=== PATIENT | female | born 1970 | race Caucasian/White ===

== ENCOUNTER 2020-10-15 06:38 | Day surgery (SDC) | payer BC ==
[~2020-10-15 06:38] MED LIST: Lactated Ringers 1,000 ML IV SCH; Sodium Chloride 0.9% 10 ML SDV IV PRN; Sodium Chloride 0.9% 10 ML Syringe FLUSH PRN; Sodium Chloride 0.9% 2.5 ML Syringe FLUSH PRN
[2020-10-15] MEDS ORDERED: Lidocaine 2% 5 ML SDV ONE (06:54)
[2020-10-15] MEDS ORDERED: Ondansetron 4 MG/2 ML SDV ONE (06:54)
[2020-10-15] MEDS ORDERED: Propofol 200 MG/20 ML SDV ONE (06:55)
[2020-10-15] MEDS ORDERED: Midazolam 1 MG/ML 2 ML SDV ONE (06:55)
[2020-10-15] MEDS ORDERED: fentaNYL 100 MCG/2 ML SDV ONE (06:56)
[2020-10-15] MEDS ORDERED: Dexamethasone 4 MG/ML 5 ML MDV ONE (06:58)
[2020-10-15] MEDS ORDERED: Scopolamine 1.5 MG Transdermal Patch TRDERM PRN (07:21)
--- NOTE | 2020-10-15 07:28 | PCM.PREANE ---
Preanesthetic Assessment - Anesthesia/Transfusion/Family Hx Anesthesia History: Prior Anesthesia Without Reaction Type of Anesthesia Reaction: Excessive Nausea/Vomiting Family History of Anesthesia Reaction: No Transfusion History: No Prior Transfusion(s) Intubation History: Unknown - Review of Systems General: No Symptoms Pulmonary: No Symptoms Cardiovascular: No Symptoms Gastrointestinal: No Symptoms Neurological: No Symptoms Other: Reports: None - Physical Assessment Vital Signs: Last Vital Signs Temp 36.3 C 10/15/20 06:45 Pulse 60 10/15/20 06:45 Resp 16 10/15/20 06:45 BP 140/85 10/15/20 06:45 Pulse Ox 96 10/15/20 06:45 Height: 5 ft 4 in Weight: 95.708 kg ASA Class: 2 Mental Status: Alert & Oriented x3 Airway Class: Mallampati = 2 Dentition: Reports: Normal Dentition, Implants (x1 upper front) Thyro-Mental Finger Breadths: 3 Mouth Opening Finger Breadths: 3 ROM/Head Extension: Full Lungs: Clear to Auscultation, Normal Respiratory Effort Cardiovascular: Regular Rate, Regular Rhythm - Lab Values: Laboratory Last Values WBC 7.76 K/uL (4.0-11.0) 10/15/20 07:04 RBC 4.08 M/uL (4.30-5.90) L 10/15/20 07:04 Hgb 11.5 g/dL (12.0-16.0) L 10/15/20 07:04 Hct 36.0 % (36.0-46.0) 10/15/20 07:04 MCV 88.2 fL (80.0-98.0) 10/15/20 07:04 MCH 28.2 pg (27.0-32.0) 10/15/20 07:04 MCHC 31.9 g/dL (31.0-37.0) 10/15/20 07:04 RDW Std Deviation 43.8 fl (28.0-62.0) 10/15/20 07:04 RDW Coeff of Harry 14 % (11.0-15.0) 10/15/20 07:04 Plt Count 302 K/uL (150-400) 10/15/20 07:04 MPV 11.00 fL (7.40-12.00) 10/15/20 07:04 Nucleated RBC % 0.0 /100WBC 10/15/20 07:04 Nucleated RBCs # 0 K/uL 10/15/20 07:04 - Allergies Allergies/Adverse Reactions: Allergies Allergy/AdvReac Type Severity Reaction Status Date / Time No Known Allergies Allergy Verified 10/11/20 09:39 - Blood Blood Available: No - Anesthesia Plan Pre-Op Medication Ordered: None - Acknowledgements Anesthesia Type Planned: General Anesthesia Pt an Appropriate Candidate for the Planned Anesthesia: Yes Alternatives and Risks of Anesthesia Discussed w Pt/Guardian: Yes Pt/Guardian Understands and Agrees with Anesthesia Plan: Yes PreAnesthesia Questionnaire HEENT History: Reports: Other (See Below) Other HEENT History: wears glasses, has dental implants Cardiovascular History: Reports: High Cholesterol, Hypertension Respiratory History: Reports: None Gastrointestinal History: Reports: None Genitourinary History: Reports: None 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: Musculoskeletal History: Reports: Arthritis, Other (See Below) Other Musculoskeletal History: hx congenital hip dysplasia Neurological History: Reports: Migraines Psychiatric History: Reports: Anxiety, Depression Endocrine/Metabolic History: Reports: Hypothyroidism, Obesity/BMI 30+ (BMI 36.2) Hematologic History: Reports: None Immunologic History: Reports: None Oncologic (Cancer) History: Reports: None Dermatologic History: Reports: None - Past Surgical History Head Surgeries/Procedures: Reports: None HEENT Surgical History: Reports: Oral Surgery, Tonsillectomy Cardiovascular Surgical History: Reports: None Respiratory Surgical History: Reports: None GI Surgical History: Reports: Cholecystectomy Female Surgical History: Reports: Section, D&C, Other (See Below) Other Female Surgeries/Procedures: hysteroscopy with fractional D&C with polypectomy on 09/15/19 Endocrine Surgical History: Reports: None Neurological Surgical History: Reports: None Musculoskeletal Surgical History: Reports: Hip Replacement, Shoulder Surgery Other Musculoskeletal Surgeries/Procedures:: rt shoulder surgery, left hip surgery for congenital hip dysplasia, achilles tendon repair Oncologic Surgical History: Reports: None Dermatological Surgical History: Reports: None - SUBSTANCE USE Tobacco Use Status *Q: Former Tobacco User Tobacco Use Within Last Twelve Months: No - HOME MEDS Home Medications: Home Meds FLUoxetine HCl [Fluoxetine HCl] 40 mg PO BEDTIME PRN 09/11/19 [History] Gabapentin [Neurontin] 300 mg PO DAILY 09/11/19 [History] Levothyroxine Sodium [Synthroid] 175 mcg PO DAILY 09/11/19 [History] Metoprolol Succinate 50 mg PO DAILY 09/11/19 [History] buPROPion HCL [Wellbutrin Xl] 300 mg PO DAILY 09/11/19 [History] Bifidobacterium Infantis [Align] 4 mg PO DAILY 10/11/20 [History] Losartan/Hydrochlorothiazide [Losartan-HCTZ 50-12.5 MG] 1 tab PO DAILY 10/11/20 [History] Omeprazole Magnesium [Prilosec Otc] 20 mg PO DAILY 10/11/20 [History] Rosuvastatin Calcium 20 mg PO DAILY 10/11/20 [History] - CURRENT (IN HOUSE) MEDS Current Meds: Current Medications Lactated Ringer's (Ringers, Lactated) 1,000 mls @ 125 mls/hr IV ASDIRECTED JUDI Last Admin: 10/15/20 07:00 Dose: 125 mls/hr Documented by: Scopolamine (Transderm-Scop) 1.5 mg TRDERM Q72H PRN PRN Reason: Nausea Sodium Chloride (Saline Flush) 2.5 ml FLUSH ASDIRECTED PRN PRN Reason: Keep Vein Open Sodium Chloride (Normal Saline) 10 ml IV ASDIRECTED PRN PRN Reason: IV Use Discontinued Medications Dexamethasone (Dexamethasone) Confirm Administered Dose 20 mg .ROUTE .STK-MED ONE Stop: 10/15/20 06:59 Fentanyl (Sublimaze) Confirm Administered Dose 100 mcg .ROUTE .STK-MED ONE Stop: 10/15/20 06:57 Lidocaine (Xylocaine-Mpf 2%) Confirm Administered Dose 5 ml .ROUTE .STK-MED ONE Stop: 10/15/20 06:55 Midazolam HCl (Versed 1 Mg/Ml) Confirm Administered Dose 2 mg .ROUTE .STK-MED ONE Stop: 10/15/20 06:56 Ondansetron HCl (Zofran) Confirm Administered Dose 4 mg .ROUTE .STK-MED ONE Stop: 10/15/20 06:55 Propofol (Diprivan 20 Ml) Confirm Administered Dose 200 mg .ROUTE .STK-MED ONE Stop: 10/15/20 06:56 Sodium Chloride (Saline Flush) 10 ml FLUSH ASDIRECTED PRN PRN Reason: Keep Vein Open Sodium Chloride (Saline Flush) 2.5 ml FLUSH ASDIRECTED PRN PRN Reason: Keep Vein Open Sodium Chloride (Normal Saline) 10 ml IV ASDIRECTED PRN PRN Reason: IV Use
[2020-10-15] MEDS ORDERED: diphenhydrAMINE 50 MG/ML SDV ONE (07:58)
[2020-10-15] MEDS ORDERED: fentaNYL 100 MCG/2 ML SDV IVPUSH PRN (08:22)
[2020-10-15] MEDS ORDERED: Ketorolac 30 MG/ML SDV ONE (08:27)
--- NOTE | 2020-10-15 08:56 | PCM.OPNOTE ---
- General Post-Op/Procedure Note Date of Surgery/Procedure: 10/15/20 Operative Procedure(s): Diagnostic hysteroscopy, dilation and curettage, thermal endometrial ablation Findings: Stenotic internal cervical os, uterine cavity with scar tissue. Pre Op Diagnosis: Abnormal uterine bleeding Post-Op Diagnosis: Same Anesthesia Technique: General LMA Primary Surgeon: Blanca Russ Secondary Surgeon: Hetal Cabrera ([id number]) Pathology: Endometrial curettings Fluid Replacement, Intraop: 900 Output, Urine Amount: 50 EBL in mLs: 10 Complications: none known Condition: Stable Free Text/Narrative:: Intake & Output 10/14/20 10/15/20 10/15/20 22:59 06:59 14:59 Output Total 50 Balance -50
[2020-10-15] MEDS ORDERED: Acetaminophen 1,000 MG in Premix Bag 1 BAG IV ONE (09:24)
--- NOTE | 2020-10-15 09:26 | PCM.POSTAN ---
POST ANESTHESIA ASSESSMENT - MENTAL STATUS Mental Status: Alert, Oriented - VITAL SIGNS Vital Signs: Last Vital Signs Temp 36.3 C 10/15/20 09:16 Pulse 64 10/15/20 09:16 Resp 15 10/15/20 09:16 BP 136/69 10/15/20 09:16 Pulse Ox 93 L 10/15/20 09:16 - RESPIRATORY Respiratory Status: Respiratory Rate WNL, Airway Patent, O2 Saturation Stable - CARDIOVASCULAR CV Status: Pulse Rate WNL, Blood Pressure Stable - GASTROINTESTINAL GI Status: No Symptoms - PAIN Pain Score: 2 - POST OP HYDRATION Hydration Status: Adequate & Stable - OBSERVATIONS Free Text/Narrative:: No anesthesia problems
--- NOTE | 2020-10-15 10:33 | PCM48HPAN ---
Post Anesthesia Note - EVALUATION WITHIN 48HRS OF ANESTHETIC Vital Signs in Normal Range: Yes Patient Participated in Evaluation: Yes Respiratory Function Stable: Yes Airway Patent: Yes Cardiovascular Function Stable: Yes Hydration Status Stable: Yes Pain Control Satisfactory: Yes Nausea and Vomiting Control Satisfactory: Yes Mental Status Recovered: Yes Vital Signs: Last Vital Signs Temp 36.3 C 10/15/20 09:16 Pulse 64 10/15/20 09:16 Resp 15 10/15/20 09:16 BP 136/69 10/15/20 09:16 Pulse Ox 93 L 10/15/20 09:16 - COMMENTS/OBSERVATIONS Free Text/Narrative:: No anesthesia problems
--- NOTE | 2020-10-15 10:42 | OR ---
SURGEON: Blanca Russ M.D. DATE OF PROCEDURE: 10/15/2020 PREOPERATIVE DIAGNOSIS: Abnormal uterine bleeding. POSTOPERATIVE DIAGNOSIS: Abnormal uterine bleeding. PROCEDURE: Diagnostic hysteroscopy, dilation and curettage, and thermal endometrial ablation. PRIMARY SURGEON: Blanca Russ M.D. HAT LINING BLOCKER: SONNY Caba. ANESTHESIA: General LMA. ESTIMATED BLOOD LOSS: 10 mL. FLUIDS: 900 mL of crystalloid. FLUID DEFICIT: 695 mL of crystalloid. FINDINGS: Stenotic cervical os and scarring across the fundal portion of the uterine cavity. DISPOSITION: The patient to PACU, stable. SPECIMENS: To Pathology. PROCEDURE DETAILS: Nohemy is a 50-year-old female who continues to have difficulty with abnormal uterine bleeding, underwent hysteroscopy and polypectomy a couple of years ago, and initially did well but then continued to have bleeding. Biopsy was benign. Polyp was benign. At this time, she is not ready to proceed with a hysterectomy but would like to consider another hysteroscopy and consideration of the thermal endometrial ablation at this juncture. The patient understands that from her previous surgery that we know that her cervical os is quite stenotic and may not be able to enter the cavity. She still feels that she would like to try to proceed in this direction. Risks of procedure have been discussed. Proper consent obtained. The patient was taken to the operating room where she underwent general LMA, was placed in modified dorsal lithotomy position, and was prepped and draped in usual sterile fashion. SCDs to lower extremity. Bladder was drained. Time-out was performed. Speculum was introduced into the vagina. The posterior lip of cervix grasped with an Allis clamp. The cervix was attempted to be gently dilated and was able to be dilated to approximately 3 mm with occlusion at the internal os once again noted. I was able to introduce the hysteroscope and be able to visualize up to the level of the scarring and then with some hydrodissection was able to see a small tunnel around the scarring. Using MyoSure device then was able to dissect the region of scarring along the internal os. This allowed better visualization of the upper endocervical canal and thereafter was able to dilate more easily into the uterine cavity, which itself had quite a lot of scarring but not enough to occlude the cavity. There was good width to the cavity noted. The cervix was now able to be more easily dilated up to 7 mm. Gentle sharp curettage was then performed. Specimen of endometrial products will be sent to Pathology. No region of defect or weakness was noted when palpating along the lateral wall and fundus of the endometrial cavity. Therefore, I opted to proceed with thermal endometrial ablation. The Carmenza device was prepped according to beater out protocol. The device was introduced to the fundus. The balloon was insufflated. Integrity tested and found to be intact, and the arms were now opened. A total of 120-second ablative process was able to be performed. The arms were now closed. The balloon was desufflated. The device was removed from the endometrial cavity. Hemostasis appeared evident. All instruments removed from vagina. Sponge and instrument counts were correct. The patient will go to PACU in stable condition. Specimen to Pathology. GIOVANNI / MAYRA /[id number]
== END 2020-10-15 10:25 | disposition home or self-care (01) ==
LOC: MW.SDS 06:38
PROVIDERS: ATTEND Obstetrics & Gynecology
DX: N93.9 Abnormal uterine and vaginal bleeding, unspecified (principal); N92.1 Excessive and frequent menstruation with irregular cycle; N85.8 Other specified noninflammatory disorders of uterus; I10 Essential (primary) hypertension; E03.9 Hypothyroidism, unspecified; E78.00 Pure hypercholesterolemia, unspecified; E66.9 Obesity, unspecified; Z68.36 Body mass index [BMI] 36.0-36.9, adult; Z87.891 Personal history of nicotine dependence; Z79.890 Hormone replacement therapy; Z79.899 Other long term (current) drug therapy; Z98.890 Other specified postprocedural states
CPT/HCPCS: 36415; 58563; 84703; 85027; A9270; J0131; J1100; J1200; J1885; J2250; J2405; J2704; J7120; 88305; J3010

== ENCOUNTER 2021-01-11 06:22 | Day surgery (SDC) | payer BC ==
[~2021-01-11 06:22] MED LIST changes: -Lactated Ringers 1,000 ML IV SCH; +ceFAZolin 2 GM in Premix Bag 1 BAG IV ONE
[2021-01-11] MEDS ORDERED: Midazolam 1 MG/ML 2 ML SDV ONE (06:50)
[2021-01-11] MEDS ORDERED: Propofol 200 MG/20 ML SDV ONE (06:50)
[2021-01-11] MEDS ORDERED: fentaNYL 250 MCG/5 ML SDV ONE (06:50)
[2021-01-11] MEDS ORDERED: Glycopyrrolate 0.2 MG/ML SDV ONE (06:52)
[2021-01-11] MEDS ORDERED: Rocuronium Bromide 50 MG/5 ML Syringe ONE ×2 (06:52→08:43)
[2021-01-11] MEDS ORDERED: Ketorolac 30 MG/ML SDV ONE (06:52)
[2021-01-11] MEDS ORDERED: Ondansetron 4 MG/2 ML SDV ONE (06:52)
[2021-01-11] MEDS ORDERED: Sugammadex Sodium 200 MG/2 ML VIAL ONE (06:52)
[2021-01-11] MEDS ORDERED: Lidocaine 2% 5 ML SDV ONE (06:52)
[2021-01-11] MEDS ORDERED: Sodium Chloride 0.9% 20 ML ONE (07:05)
[2021-01-11] MEDS ORDERED: ceFAZolin 1 GM Vial ONE (07:05)
[2021-01-11] MEDS ORDERED: Acetaminophen 1,000 MG in Premix Bag 1 BAG IV PRN (07:19)
[2021-01-11] MEDS ORDERED: fentaNYL 100 MCG/2 ML SDV IVPUSH PRN (07:19)
--- NOTE | 2021-01-11 07:23 | PCM.PREANE ---
Preanesthetic Assessment - Anesthesia/Transfusion/Family Hx Anesthesia History: Prior Anesthesia Without Reaction Family History of Anesthesia Reaction: No Transfusion History: No Prior Transfusion(s) Intubation History: Unknown - Physical Assessment NPO Status Date: 01/11/21 NPO Status Time: 00:01 Height: 5 ft 4 in Weight: 212 lb ASA Class: 2 Airway Class: Mallampati = 3 Lungs: Normal Respiratory Effort Cardiovascular: Regular Rhythm - Lab Values: Laboratory Last Values SARS-CoV-2 RNA (ANA) NEGATIVE (NEGATIVE) 01/11/21 06:04 - Allergies Allergies/Adverse Reactions: Allergies Allergy/AdvReac Type Severity Reaction Status Date / Time No Known Allergies Allergy Verified 01/05/21 10:12 - Anesthesia Plan Pre-Op Medication Ordered: None - Acknowledgements Anesthesia Type Planned: General Anesthesia Pt an Appropriate Candidate for the Planned Anesthesia: Yes Alternatives and Risks of Anesthesia Discussed w Pt/Guardian: Yes Pt/Guardian Understands and Agrees with Anesthesia Plan: Yes Additional Comments: npo aftr mn htn no cv problems suri depression tob mostly quit 2018 smoked 1 pack over the part 2 months etoh none obesity bmi 36 headaches par no questions PreAnesthesia Questionnaire HEENT History: Reports: Other (See Below) Other HEENT History: wears glasses, has dental implant Cardiovascular History: Reports: High Cholesterol, Hypertension Respiratory History: Reports: None Gastrointestinal History: Reports: GERD Genitourinary History: Reports: None 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, Musculoskeletal History: Reports: Arthritis, Other (See Below) Other Musculoskeletal History: hx congenital hip dysplasia Neurological History: Reports: Migraines Psychiatric History: Reports: Anxiety, Depression Endocrine/Metabolic History: Reports: Hypothyroidism, Obesity/BMI 30+ Hematologic History: Reports: None Immunologic History: Reports: None Oncologic (Cancer) History: Reports: None Dermatologic History: Reports: None - Past Surgical History Head Surgeries/Procedures: Reports: None HEENT Surgical History: Reports: Oral Surgery, Tonsillectomy Cardiovascular Surgical History: Reports: None Respiratory Surgical History: Reports: None GI Surgical History: Reports: Cholecystectomy Female Surgical History: Reports: Section, D&C, Other (See Below) Other Female Surgeries/Procedures: hysteroscopy with fractional D&C with polypectomy on 09/15/19, diag hysteroscopy, D&C with thermal ablation 10/15/20 Endocrine Surgical History: Reports: None Neurological Surgical History: Reports: None Musculoskeletal Surgical History: Reports: Hip Replacement, Shoulder Surgery Other Musculoskeletal Surgeries/Procedures:: rt shoulder surgery, multiple left hip surgeries, achilles tendon repair Oncologic Surgical History: Reports: None Dermatological Surgical History: Reports: None - SUBSTANCE USE Tobacco Use Status *Q: Former Tobacco User Tobacco Use Within Last Twelve Months: No - HOME MEDS Home Medications: Home Meds Gabapentin [Neurontin] 300 mg PO DAILY 09/11/19 [History] Levothyroxine Sodium [Synthroid] 175 mcg PO DAILY 09/11/19 [History] Metoprolol Succinate 50 mg PO DAILY 09/11/19 [History] buPROPion HCL [Wellbutrin Xl] 300 mg PO DAILY 09/11/19 [History] Omeprazole Magnesium [Prilosec Otc] 40 mg PO DAILY 10/11/20 [History] FLUoxetine [PROzac] 40 mg PO DAILY 01/05/21 [History] Loratadine [Claritin] 10 mg PO ASDIRECTED PRN 01/05/21 [History] Losartan [Cozaar] 50 mg PO DAILY 01/05/21 [History] Rosuvastatin Calcium 20 mg PO DAILY 01/05/21 [History] hydroCHLOROthiazide [Hydrochlorothiazide] 12.5 mg PO DAILY 01/05/21 [History] - CURRENT (IN HOUSE) MEDS Current Meds: Current Medications Fentanyl (Fentanyl 100 Mcg/2 Ml Sdv) 50 mcg IVPUSH Q5M PRN PRN Reason: Pain Acetaminophen 1,000 mg/ Premix 100 mls @ 400 mls/hr IV Q6H PRN PRN Reason: Pain Sodium Chloride (Sodium Chloride 0.9% 10 Ml Syringe) 10 ml FLUSH ASDIRECTED PRN PRN Reason: Keep Vein Open Sodium Chloride (Sodium Chloride 0.9% 2.5 Ml Syringe) 2.5 ml FLUSH ASDIRECTED PRN PRN Reason: Keep Vein Open Sodium Chloride (Sodium Chloride 0.9% 10 Ml Sdv) 10 ml IV ASDIRECTED PRN PRN Reason: IV Use Discontinued Medications Cefazolin Sodium (Cefazolin 1 Gm Vial) Confirm Administered Dose 2 gm .ROUTE .STK-MED ONE Stop: 01/11/21 07:06 Fentanyl (Fentanyl 250 Mcg/5 Ml Sdv) Confirm Administered Dose 250 mcg .ROUTE .STK-MED ONE Stop: 01/11/21 06:51 Glycopyrrolate (Glycopyrrolate 0.2 Mg/Ml Sdv) Confirm Administered Dose 0.2 mg .ROUTE .STK-MED ONE Stop: 01/11/21 06:53 Cefazolin Sodium/Dextrose 2 gm (/ Premix) 50 mls @ 100 mls/hr IV ONETIME ONE Stop: 01/11/21 05:29 Sodium Chloride (Normal Saline) Confirm Administered Dose 20 mls @ as directed .ROUTE .STK-MED ONE Stop: 01/11/21 07:06 Ketorolac Tromethamine (Ketorolac 30 Mg/Ml Sdv) Confirm Administered Dose 30 mg .ROUTE .STK-MED ONE Stop: 01/11/21 06:53 Lidocaine (Lidocaine 2% 5 Ml Sdv) Confirm Administered Dose 5 ml .ROUTE .STK-MED ONE Stop: 01/11/21 06:53 Midazolam HCl (Midazolam 1 Mg/Ml 2 Ml Sdv) Confirm Administered Dose 2 mg .ROUTE .STK-MED ONE Stop: 01/11/21 06:51 Ondansetron HCl (Ondansetron 4 Mg/2 Ml Sdv) Confirm Administered Dose 4 mg .ROUTE .STK-MED ONE Stop: 01/11/21 06:53 Propofol (Propofol 200 Mg/20 Ml Sdv) Confirm Administered Dose 200 mg .ROUTE .STK-MED ONE Stop: 01/11/21 06:51 Rocuronium [place] (Rocuronium [place] 50 Mg/5 Ml Syringe) Confirm Administered Dose 50 mg .ROUTE .STK-MED ONE Stop: 01/11/21 06:53 Sugammadex Sodium (Sugammadex Sodium 200 Mg/2 Ml Vial) Confirm Administered Dose 200 mg .ROUTE .STK-MED ONE Stop: 01/11/21 06:53
[2021-01-11] MEDS ORDERED: Bupivacaine 0.25% 10 ML SDV ONE (07:32)
[2021-01-11] MEDS ORDERED: Fluorescein 5 ML Vial ONE (07:32)
[2021-01-11] MEDS ORDERED: Methylene Blue 50 MG/10 ML Ampule ONE (07:32)
[2021-01-11 07:46] LABS: POTASSIUM,K 3.9 mmol/L (3.5-5.1); SODIUM,NA 141 mmol/L (136-145)
[2021-01-11 07:52] LABS: BLOOD UREA NITROGEN,BUN 19 mg/dL (7.0-18.0); CARBON DIOXIDE,CO2 26.1 mmol/L (21.0-32.0); CHLORIDE,CL 106 mmol/L (98-107); GLUCOSE RANDOM 107 mg/dL (74-106)
[2021-01-11] MEDS ORDERED: Lactated Ringers 1,000 ML IV SCH ×2 (08:00→09:45)
[2021-01-11] MEDS ORDERED: HYDROmorphone 2 MG/ML Syringe ONE (08:30)
[2021-01-11] MEDS ORDERED: Furosemide 40 MG/4 ML VIAL ONE (09:14)
[2021-01-11] MEDS ORDERED: Promethazine 25 MG/ML SDV IM PRN (09:41)
[2021-01-11] MEDS ORDERED: Ketorolac 30 MG/ML SDV IVPUSH ONE (09:41)
[2021-01-11] MEDS ORDERED: Acetaminophen/oxyCODONE 325-5 MG Tab PO PRN ×2 (09:41)
[2021-01-11] MEDS ORDERED: Ondansetron 4 MG/2 ML SDV IVPUSH PRN (09:41)
[2021-01-11] MEDS ORDERED: Morphine 4 MG/ML Syringe IVPUSH PRN (09:41)
--- NOTE | 2021-01-11 09:53 | PCM.OPNOTE ---
- General Post-Op/Procedure Note Date of Surgery/Procedure: 01/11/21 Operative Procedure(s): LAVH/bilateral salpingectomy/cystoscopy Findings: Boggy, enlarged uterus. Normal appearing ovaries. Bilateral patent ureters Pre Op Diagnosis: Abnormal uterine bleeding Post-Op Diagnosis: Same Anesthesia Technique: General ET Tube Primary Surgeon: Blanca Russ Fluid Replacement, Intraop: 1,500 EBL in mLs: 150 Complications: none known Condition: Stable Free Text/Narrative:: Dictation [id number]
--- NOTE | 2021-01-11 10:48 | PCM.POSTAN ---
POST ANESTHESIA ASSESSMENT - MENTAL STATUS Mental Status: Alert (no anesthetic problems), Oriented - VITAL SIGNS Vital Signs: Last Vital Signs Temp 97.9 F 01/11/21 09:45 Pulse 76 01/11/21 10:40 Resp 11 L 01/11/21 10:40 BP 141/83 H 01/11/21 10:40 Pulse Ox 96 01/11/21 10:40 - RESPIRATORY Respiratory Status: Respiratory Rate WNL, Airway Patent, O2 Saturation Stable - CARDIOVASCULAR CV Status: Pulse Rate WNL, Blood Pressure Stable - GASTROINTESTINAL GI Status: No Symptoms - POST OP HYDRATION Hydration Status: Adequate & Stable
[2021-01-11] MEDS ORDERED: diphenhydrAMINE 50 MG/ML SDV IVPUSH PRN (11:51)
--- NOTE | 2021-01-11 16:31 | OR ---
SURGEON: Blanca Russ M.D. DATE OF PROCEDURE: 01/11/2021 PREOPERATIVE DIAGNOSIS: Abnormal uterine bleeding. POSTOPERATIVE DIAGNOSIS: Abnormal uterine bleeding. PROCEDURES: Laparoscopic-assisted vaginal hysterectomy with bilateral salpingectomy, cystoscopy. PRIMARY SURGEON: Blanca Russ M.D. POLISHING MACHINE OPERATOR HELPER: Malena Deluna MD ANESTHESIA: General endotracheal anesthesia. FLUIDS: 1500 mL of crystalloid. ESTIMATED BLOOD LOSS: 150 mL. COMPLICATIONS: None known. FINDINGS: Boggy uterus, normal-appearing ovaries, bilateral patent ureters. DISPOSITION: The patient to PACU in stable condition. PROCEDURE DETAILS: Nohemy is a 50-year-old female who has ongoing difficulties with abnormal uterine bleeding. At this time, she would like to proceed with definitive surgical intervention, and endometrial sampling had been benign. The patient would like to retain ovaries. Risks of procedure had been discussed with her. Proper consent obtained. The patient was taken to the operating room where she underwent general endotracheal anesthesia, placed in modified dorsal lithotomy position, arms tucked, prepped and draped in usual sterile fashion. SCDs to lower extremities. [place] to gravity. Received Ancef prophylactically. Time-out was performed. A speculum was introduced into the vagina. Anterior lip of cervix was grasped with a single-tooth tenaculum. Cervix was gently dilated to 5 mm. A HUMI uterine manipulator was now gently introduced. Tenaculum and speculum were now removed. Gloves changed. Attention turned abdominally. Infraumbilically, 0.25% Marcaine was introduced. Please see nurse's notes for total amount of local dispensed during the procedure. A 5 mm midline sagittal infraumbilical skin incision was created. Anterior abdominal wall tented upward. Veress needle introduced. Saline hanging drop test was performed. Pneumoperitoneum was achieved. Veress needle was removed. Trocar was introduced with laparoscope, and peritoneal contents were identified. A left lower quadrant and right lower quadrant trocars were now placed under direct visualization after prepping these regions with 0.25% Marcaine and creating a 5 mm skin incision. After trocars introduced, was able to easily mobilize uterus. The patient was in Trendelenburg positioning. Ureters were visualized peristalsing away from the operative field. The left fallopian tube at the fimbriated end was now grasped and the salpingectomy was performed up to the level of the cornua, and then using LigaSure, pedicles were secured, cauterized, and transected along the [id number] pedicle, the upper portion of the broad ligament, the medial leaf of the broad ligament, down through the round ligament, and then through the cardinal ligaments. The uterovesical reflection was visualized. A bladder flap was created with LigaSure. Bladder was mobilized from the lower uterine segment. There are fairly dense adhesions along the midline of this region, which were gently dissected and then hydrodissected. In similar aspect, this was performed on the patient's right side. Salpingectomy at the level of the cornua, pedicles through the remaining [id number] pedicle, the broad ligament through the round ligament, down through the base of the broad ligament to the cardinal ligament, to the level of the uterosacral ligament. The bladder on this side was further dissected away from the lower uterine segment and the hydrodissection was once again performed. The bladder was felt to be adequately mobilized away from the lower uterine segment, cervix. A fair amount of backbleeding is noted at this juncture. Ovaries do appear normal. Pneumoperitoneum was now released. Laparoscopic instruments have been removed. Attention was turned vaginally. Hips were flexed. Weighted speculum was introduced, anterior [place]. Cervix grasped with a Aaron clamp. Cervix tented downward, circumscribed with Bovie cautery anteriorly and posteriorly. The overlying mucosa was dissected away from underlying peritoneum. Posterior peritoneum was tented downward and entered sharply. Longer weighted speculum was replaced with shorter. Peritoneal contents identified anteriorly. The cul- de-sac was entered, and the bladder was mobilized away from the operative field. María clamp was utilized on either side to secure the uterosacral ligament, transected, and suture ligated using 2-0 Vicryl. Remainder pedicle on either side was able to be secured, transected, and suture ligated using 2-0 Vicryl. Uterus now able to be exteriorized and will be handed off to technical information specialist to be sent to Pathology. Fallopian tubes are attached. The pedicle was now closely inspected. The vaginal apex on either side was plicated to the uterosacral ligament. Pedicles otherwise appeared hemostatic. The cuff was closed using 0 Vicryl in continuous running locked fashion. The cuff line was inspected. IV fluorescein had been introduced. A Medina catheter balloon was desufflated. Medina catheter was removed. Cystoscope was introduced using normal saline as a distention media. The dome of the bladder was visualized and found to be intact. Trigone was now inspected. The right ureteral orifice followed by the left ureteral orifice were able to be visualized. Fluorescein-dyed urine was seen streaming from them helping to ensure ureteral patency. The bladder was now drained. Medina catheter was replaced after removing the cystoscope. The cuff line was once again inspected, found to be hemostatic. Gloves changed. Attention turned abdominally. Pneumoperitoneum was once again achieved. The pelvis was inspected, copiously irrigated, suction dried. The pedicles appeared hemostatic except for one area of oozing along the midline cuff, which was cauterized with LigaSure. Hemostasis thereafter evident. The pelvis was again copiously irrigated, suction dried. Relief pressure decreased to 5 mm. Hemostasis once again appeared evident. Therefore, pneumoperitoneum was released. The trocars were removed under direct visualization in the right and left lower quadrants. The laparoscope was now removed followed by the infraumbilical trocar after releasing as much of the pneumoperitoneum as possible. The skin edges were now reapproximated using 3-0 Monocryl in subcuticular fashion. Sponge, instrument, and needle count was correct x2. The patient tolerated the procedure well overall. She will go to PACU in stable condition. Specimen to Pathology. GIOVANIN / MAYRA /[id number]
--- NOTE | 2021-01-11 18:04 | PCM.SN.2 ---
- Free Text/Narrative Note: Patient has a headache, otherwise feeling well. Cramping is tolerable, denies nausea. Explained intraop findings and procedure. VS are stable. Urine output is adequate. Has not received any toradol this afternoon--dose with this and cool compress for headache. Continue postoperative cares.
[2021-01-11] MEDS: Ketorolac 30 MG/ML SDV IVPUSH PRN (18:16)
[2021-01-12] MEDS: Ketorolac 30 MG/ML SDV IVPUSH PRN (05:30)
[2021-01-12 06:16] LABS: BLOOD UREA NITROGEN,BUN 8 mg/dL (7.0-18.0); CARBON DIOXIDE,CO2 25.7 mmol/L (21.0-32.0); CHLORIDE,CL 105 mmol/L (98-107); GLUCOSE RANDOM 105 mg/dL (74-106); SODIUM,NA 140 mmol/L (136-145)
--- NOTE | 2021-01-12 07:06 | PCM48HPAN ---
Post Anesthesia Note - EVALUATION WITHIN 48HRS OF ANESTHETIC Vital Signs in Normal Range: Yes Patient Participated in Evaluation: Yes Respiratory Function Stable: Yes Airway Patent: Yes Cardiovascular Function Stable: Yes Hydration Status Stable: Yes Pain Control Satisfactory: Yes Nausea and Vomiting Control Satisfactory: Yes Mental Status Recovered: Yes Vital Signs: Last Vital Signs Temp 36.4 C 01/12/21 06:00 Pulse 81 01/12/21 06:00 Resp 18 01/11/21 19:00 BP 112/72 01/12/21 06:00 Pulse Ox 91 L 01/11/21 19:00
[2021-01-12] MEDS: Docusate Sodium 100 MG Cap PO SCH ×2 (08:30)
--- NOTE | 2021-01-12 08:46 | PCM.SURGPN ---
- General Info Date of Service: 01/12/21 POD#: 1 Functional Status: Reports: Pain Controlled, Tolerating Diet, Ambulating, Urinating - Review of Systems General: Reports: Fatigue. Denies: Fever, Weakness Pulmonary: Denies: Shortness of Breath Cardiovascular: Denies: Chest Pain, Palpitations, Lightheadedness Gastrointestinal: Denies: Abdominal Pain, Nausea, Vomiting Genitourinary: Denies: Flank Pain Musculoskeletal: Reports: No Symptoms Skin: Reports: No Symptoms Neurological: Reports: No Symptoms Psychiatric: Reports: No Symptoms - Patient Data Vitals - Most Recent: Last Vital Signs Temp 36.7 C 01/12/21 08:00 Pulse 69 01/12/21 08:00 Resp 16 01/12/21 08:00 BP 123/84 01/12/21 08:00 Pulse Ox 92 L 01/12/21 08:00 Weight - Most Recent: 96.162 kg I&O - Last 24 Hours: Intake & Output 01/11/21 01/12/21 01/12/21 22:59 06:59 14:59 Intake Total 587 Output Total 400 500 Balance 187 @ -500 Lab Results Last 24 Hrs: Laboratory Results - last 24 hr 01/12/21 01/12/21 Range/Units 05:18 05:18 WBC 7.04 (4.0-11.0) K/uL RBC 3.77 L (4.30-5.90) M/uL Hgb 10.7 L (12.0-16.0) g/dL Hct 32.9 L (36.0-46.0) % MCV 87.3 (80.0-98.0) fL MCH 28.4 (27.0-32.0) pg MCHC 32.5 (31.0-37.0) g/dL RDW Std Deviation 47.3 (28.0-62.0) fl RDW Coeff of Harry 15 (11.0-15.0) % Plt Count 271 (150-400) K/uL MPV 11.10 (7.40-12.00) fL Neut % (Auto) 74.9 (48.0-80.0) % Lymph % (Auto) 15.2 L (16.0-40.0) % [place] % (Auto) 8.9 (0.0-15.0) % Eos % (Auto) 0.9 (0.0-7.0) % Baso % (Auto) 0.1 (0.0-1.5) % Neut # (Auto) 5.3 (1.4-5.7) K/uL Lymph # (Auto) 1.1 (0.6-2.4) K/uL [place] # (Auto) 0.6 (0.0-0.8) K/uL Eos # (Auto) 0.1 (0.0-0.7) K/uL Baso # (Auto) 0.0 (0.0-0.1) K/uL Nucleated RBC % 0.0 /100WBC Nucleated RBCs # 0 K/uL Sodium 140 (136-145) mmol/L Potassium 4.0 (3.5-5.1) mmol/L Chloride 105 (98-107) mmol/L Carbon Dioxide 25.7 (21.0-32.0) mmol/L BUN 8 (7.0-18.0) mg/dL Creatinine 0.6 (0.6-1.0) mg/dL Est Cr Clr Drug Dosing 96.86 mL/min Estimated GFR (MDRD) > 60.0 ml/min Glucose 105 (74-106) mg/dL Calcium 8.1 L (8.5-10.1) mg/dL Med Orders - Current: Current Medications Diphenhydramine HCl (Diphenhydramine 50 Mg/Ml Sdv) 12.5 mg IVPUSH Q4H PRN PRN Reason: Itching Last Admin: 01/11/21 12:12 Dose: 12.5 mg Documented by: Docusate Sodium (Docusate Sodium 100 Mg Cap) 100 mg PO BID [facility] Last Admin: 01/12/21 08:30 Dose: 100 mg Documented by: Lactated Ringer's (Ringers, Lactated) 1,000 mls @ 125 mls/hr IV ASDIRECTED [facility] Last Admin: 01/11/21 12:13 Dose: 125 mls/hr Documented by: Ketorolac Tromethamine (Ketorolac 30 Mg/Ml Sdv) 30 mg IVPUSH Q6H PRN PRN Reason: Pain (severe 7-10) Stop: 01/16/21 16:01 Last Admin: 01/12/21 05:30 Dose: 30 mg Documented by: Morphine Sulfate (Morphine 4 Mg/Ml Syringe) 4 mg IVPUSH Q2H PRN PRN Reason: Pain (severe 7-10) Ondansetron HCl (Ondansetron 4 Mg/2 Ml Sdv) 4 mg IVPUSH Q6H PRN PRN Reason: Nausea/Vomiting Oxycodone/Acetaminophen (Acetaminophen/Oxycodone 325-5 Mg Tab) 1 tab PO Q4H PRN PRN Reason: Pain (moderate 4-6) Last Admin: 01/11/21 16:01 Dose: 1 tab Documented by: Oxycodone/Acetaminophen (Acetaminophen/Oxycodone 325-5 Mg Tab) 2 tab PO Q4H PRN PRN Reason: Pain (moderate 4-6) Last Admin: 01/12/21 08:30 Dose: 2 tab Documented by: Promethazine HCl (Promethazine 25 Mg/Ml Sdv) 25 mg IM Q6H PRN PRN Reason: Nausea/Vomiting Sodium Chloride (Sodium Chloride 0.9% 10 Ml Syringe) 10 ml FLUSH ASDIRECTED PRN PRN Reason: Keep Vein Open Sodium Chloride (Sodium Chloride 0.9% 2.5 Ml Syringe) 2.5 ml FLUSH ASDIRECTED PRN PRN Reason: Keep Vein Open Sodium Chloride (Sodium Chloride 0.9% 10 Ml Sdv) 10 ml IV ASDIRECTED PRN PRN Reason: IV Use Discontinued Medications Bupivacaine HCl (Bupivacaine 0.25% 10 Ml Sdv) Confirm Administered Dose 10 ml .ROUTE .STK-MED ONE Stop: 01/11/21 07:33 Cefazolin Sodium (Cefazolin 1 Gm Vial) Confirm Administered Dose 2 gm .ROUTE .STK-MED ONE Stop: 01/11/21 07:06 Fentanyl (Fentanyl 250 Mcg/5 Ml Sdv) Confirm Administered Dose 250 mcg .ROUTE .STK-MED ONE Stop: 01/11/21 06:51 Fentanyl (Fentanyl 100 Mcg/2 Ml Sdv) 50 mcg IVPUSH Q5M PRN PRN Reason: Pain Fluorescein Sodium (Fluorescein 5 Ml Vial) Confirm Administered Dose 5 ml .ROUTE .STK-MED ONE Stop: 01/11/21 07:33 Furosemide (Furosemide 40 Mg/4 Ml Vial) Confirm Administered Dose 40 mg .ROUTE .STK-MED ONE Stop: 01/11/21 09:15 Glycopyrrolate (Glycopyrrolate 0.2 Mg/Ml Sdv) Confirm Administered Dose 0.2 mg .ROUTE .STK-MED ONE Stop: 01/11/21 06:53 Hydromorphone HCl (Hydromorphone 2 Mg/Ml Syringe) Confirm Administered Dose 2 mg .ROUTE .STK-MED ONE Stop: 01/11/21 08:31 Cefazolin Sodium/Dextrose 2 gm (/ Premix) 50 mls @ 100 mls/hr IV ONETIME ONE Stop: 01/11/21 05:29 Sodium Chloride (Normal Saline) Confirm Administered Dose 20 mls @ as directed .ROUTE .STK-MED ONE Stop: 01/11/21 07:06 Acetaminophen 1,000 mg/ Premix 100 mls @ 400 mls/hr IV ONETIME PRN PRN Reason: Pain Lactated Ringer's (Ringers, Lactated) 1,000 mls @ 125 mls/hr IV ASDIRECTED [facility] Last Admin: 01/11/21 07:15 Dose: 125 mls/hr Documented by: Ketorolac Tromethamine (Ketorolac 30 Mg/Ml Sdv) Confirm Administered Dose 30 mg .ROUTE .STK-MED ONE Stop: 01/11/21 06:53 Ketorolac Tromethamine (Ketorolac 30 Mg/Ml Sdv) 30 mg IVPUSH ONETIME ONE Stop: 01/11/21 09:42 Last Admin: 01/11/21 14:12 Dose: Not Given Documented by: Lidocaine (Lidocaine 2% 5 Ml Sdv) Confirm Administered Dose 5 ml .ROUTE .STK-MED ONE Stop: 01/11/21 06:53 Methylene Blue (Methylene Blue 50 Mg/10 Ml Ampule) Confirm Administered Dose 50 mg .ROUTE .STK-MED ONE Stop: 01/11/21 07:33 Midazolam HCl (Midazolam 1 Mg/Ml 2 Ml Sdv) Confirm Administered Dose 2 mg .ROUTE .STK-MED ONE Stop: 01/11/21 06:51 Ondansetron HCl (Ondansetron 4 Mg/2 Ml Sdv) Confirm Administered Dose 4 mg .ROUTE .STK-MED ONE Stop: 01/11/21 06:53 Propofol (Propofol 200 Mg/20 Ml Sdv) Confirm Administered Dose 200 mg .ROUTE .STK-MED ONE Stop: 01/11/21 06:51 Rocuronium [place] (Rocuronium [place] 50 Mg/5 Ml Syringe) Confirm Administered Dose 50 mg .ROUTE .STK-MED ONE Stop: 01/11/21 06:53 Rocuronium [place] (Rocuronium [place] 50 Mg/5 Ml Syringe) Confirm Administered Dose 50 mg .ROUTE .STK-MED ONE Stop: 01/11/21 08:44 Sugammadex Sodium (Sugammadex Sodium 200 Mg/2 Ml Vial) Confirm Administered Dose 200 mg .ROUTE .STK-MED ONE Stop: 01/11/21 06:53 - Exam Wound/Incisions: Dressing Dry and Intact General: Alert, Oriented Neck: Supple Lungs: Normal Respiratory Effort Cardiovascular: Regular Rate, Regular Rhythm GI/Abdominal Exam: Normal Bowel Sounds, Soft, Non-Tender Extremities: Pedal Edema (trace). No: Romy's Sign Skin: Warm, Dry, Intact Neurological: No New Focal Deficit Psy/Mental Status: Alert, Normal Affect, Normal Mood Sepsis Event Note - Evaluation Sepsis Screening Result: No Definite Risk - Focused Exam Vital Signs: Vital Signs Temp Pulse Resp BP Pulse Ox 01/12/21 08:00 36.7 C 69 16 123/84 92 L 01/12/21 06:00 36.4 C 81 112/72 01/12/21 00:23 36.6 C 78 127/78 - Problem List & Annotations (1) Status post laparoscopic assisted vaginal hysterectomy SNOMED Code(s): 218068033, 09642621, 500263260 Code(s): Z90.710 - ACQUIRED ABSENCE OF BOTH CERVIX AND UTERUS Status: Acute Current Visit: Yes - Problem List Review Problem List Initiated/Reviewed/Updated: Yes - My Orders Last 24 Hours: Active Orders 24 hr Category Date Time Status Patient Status [ADT] Routine ADT 01/11/21 09:41 Active Antiembolic Devices [RC] PER UNIT ROUTINE Care 01/11/21 09:41 Active Notify Provider Intake and Out [RC] ASDIRECTED Care 01/11/21 09:41 Active Notify Provider Vital Signs [RC] ASDIRECTED Care 01/11/21 09:41 Active Oxygen Therapy [RC] ASDIRECTED Care 01/11/21 09:41 Active RT Incentive Spirometry [RC] Q2HWA Care 01/11/21 09:41 Active Up With Assistance [RC] PER UNIT ROUTINE Care 01/11/21 09:41 Active Up ad Safia [RC] PER UNIT ROUTINE Care 01/11/21 09:41 Active Urinary Catheter Removal [RC] Per Unit Routine Care 01/11/21 09:41 Active Vital Signs [RC] PER UNIT ROUTINE Care 01/11/21 09:41 Active Regular Diet [DIET] Diet 01/11/21 Lunch Active Acetaminophen/oxyCODONE [Percocet 325-5 MG] Med 01/11/21 09:41 Active 1 tab PO Q4H PRN Acetaminophen/oxyCODONE [Percocet 325-5 MG] Med 01/11/21 09:41 Active 2 tab PO Q4H PRN Docusate Sodium [Colace] Med 01/11/21 21:00 Active 100 mg PO BID Ketorolac [Toradol] Med 01/11/21 16:00 Active 30 mg IVPUSH Q6H PRN Lactated Ringers [Ringers, Lactated] 1,000 ml Med 01/11/21 09:45 Active IV ASDIRECTED Morphine Med 01/11/21 09:41 Active 4 mg IVPUSH Q2H PRN Ondansetron [Zofran] Med 01/11/21 09:41 Active 4 mg IVPUSH Q6H PRN Promethazine [Phenergan] Med 01/11/21 09:41 Active 25 mg IM Q6H PRN diphenhydrAMINE [Benadryl] Med 01/11/21 11:51 Active 12.5 mg IVPUSH Q4H PRN Perineal Care [OM.PC] Per Unit Routine Oth 01/11/21 09:42 Ordered Peripheral IV Discontinue [OM.PC] Routine Oth 01/11/21 09:41 Ordered Sequential Compression Device [OM.PC] Per Unit Routine Oth 01/11/21 09:41 Ordered Resuscitation Status Routine Resus Stat 01/11/21 09:41 Ordered Medication Orders Diphenhydramine HCl (Diphenhydramine 50 Mg/Ml Sdv) 12.5 mg IVPUSH Q4H PRN PRN Reason: Itching Last Admin: 01/11/21 12:12 Dose: 12.5 mg Documented by: KONRAD Docusate Sodium (Docusate Sodium 100 Mg Cap) 100 mg PO BID [facility] Last Admin: 01/12/21 08:30 Dose: 100 mg Documented by: Admin: 01/12/21 08:30 Dose: Not Given Documented by: KONRAD Lactated Ringer's (Ringers, Lactated) 1,000 mls @ 125 mls/hr IV ASDIRECTED [facility] Last Admin: 01/11/21 12:13 Dose: 125 mls/hr Documented by: KONRAD Ketorolac Tromethamine (Ketorolac 30 Mg/Ml Sdv) 30 mg IVPUSH Q6H PRN PRN Reason: Pain (severe 7-10) Stop: 01/16/21 16:01 Last Admin: 01/12/21 05:30 Dose: 30 mg Documented by: ALMA ROSA Admin: 01/11/21 18:16 Dose: 30 mg Documented by: SRINI Morphine Sulfate (Morphine 4 Mg/Ml Syringe) 4 mg IVPUSH Q2H PRN PRN Reason: Pain (severe 7-10) Ondansetron HCl (Ondansetron 4 Mg/2 Ml Sdv) 4 mg IVPUSH Q6H PRN PRN Reason: Nausea/Vomiting Oxycodone/Acetaminophen (Acetaminophen/Oxycodone 325-5 Mg Tab) 1 tab PO Q4H PRN PRN Reason: Pain (moderate 4-6) Last Admin: 01/11/21 16:01 Dose: 1 tab Documented by: KONRAD Oxycodone/Acetaminophen (Acetaminophen/Oxycodone 325-5 Mg Tab) 2 tab PO Q4H PRN PRN Reason: Pain (moderate 4-6) Last Admin: 01/12/21 08:30 Dose: 2 tab Documented by: KONRAD Promethazine HCl (Promethazine 25 Mg/Ml Sdv) 25 mg IM Q6H PRN PRN Reason: Nausea/Vomiting Sodium Chloride (Sodium Chloride 0.9% 10 Ml Syringe) 10 ml FLUSH ASDIRECTED PRN PRN Reason: Keep Vein Open Sodium Chloride (Sodium Chloride 0.9% 2.5 Ml Syringe) 2.5 ml FLUSH ASDIRECTED PRN PRN Reason: Keep Vein Open Sodium Chloride (Sodium Chloride 0.9% 10 Ml Sdv) 10 ml IV ASDIRECTED PRN PRN Reason: IV Use - Assessment Assessment (Free Text/Narrative):: POD 1 status post LAVH/bilateral salpingectomy/cystoscopy - Plan Plan (Free Text/Narrative):: VS and labs are reassuring. Patient is voiding and tolerating diet. Pain is controlled overall. She feels ready to go home. Discharge instructions reviewed. Follow up at [facility] 2 weeks. Discharge to home today.
== END 2021-01-12 11:15 | disposition home or self-care (01) ==
LOC: MW.SDS 06:22 → MW.OB 12:05 → MW.SDS 01-12 11:15
PROVIDERS: ATTEND Obstetrics & Gynecology
DX: N87.9 Dysplasia of cervix uteri, unspecified (principal); N92.1 Excessive and frequent menstruation with irregular cycle; Z01.812 Encounter for preprocedural laboratory examination; Z20.822 Contact with and (suspected) exposure to COVID-19; I10 Essential (primary) hypertension; E03.9 Hypothyroidism, unspecified; Z79.890 Hormone replacement therapy; Z79.899 Other long term (current) drug therapy
CPT/HCPCS: 36415; 58552; 80048; 84703; 85025; 85027; 86850; 86900; 86901; 87635; 88307; A9270; J0690; J1170; J1200; J1885; J1940; J2250; J2704; J3010; J3490; J7120; 00944; J2405; U0002